=== PATIENT | female | born 1975 | race Caucasian/White ===

== ENCOUNTER → 2020-07-04 | Outpatient (CLI) | payer MEDICARE, MEDICAID ==
[2020-07-04 16:22] LABS: ALT/SGPT 16 U/L (12-78); BILIRUBIN,TOTAL 0.3 MG/DL (0.2-1.0); BLOOD UREA NITROGEN 7 MG/DL (7-18); CALCIUM LEVEL 9.8 MG/DL (8.5-10.1); CARBON DIOXIDE LEVEL 28 MEQ/L (21-32); CHLORIDE LEVEL 109 MEQ/L (98-107); GLOMERULAR FILTRATION RATE > 60.0 (>58); GLUCOSE, FASTING 92 MG/DL (70-100); PHENOBARBITAL LEVEL 22.1 UG/ML (15.0-40.0); POTASSIUM SERUM 5.4 MEQ/L (3.5-5.1); SODIUM LEVEL 143 MEQ/L (136-145)
--- NOTE | 2020-07-19 17:09 | REP ---
WHOLE BREAST RIGHT UNILATERAL ULTRASOUND HISTORY: Patient with cerebral palsy unable to do mammography. Breast pain x6 months. Right breast bloody nipple discharge. FINDINGS: Patient was scanned in the wheelchair and exam quality is inhibited by patient motion and position. Scanning of the entire right breast is performed. Multiple anechoic structures are seen posterior to the nipple with a few dilated ducts. At 12 o'clock, there is a 9 x 8 x 7 mm cyst. At the 4 o'clock position, 1.4 cm from the nipple, there is a 6 mm cyst. In the 6 o'clock position just posterior to the nipple, there is an 11 mm cyst. A 7 mm cyst is seen at the 10 o'clock position 2.6 cm from the nipple. Heterogeneous fibroglandular background echotexture is seen. IMPRESSION: BI-RADS Category 2 benign findings. Exam quality somewhat inhibited by patient mobility issues. Clinical follow-up is advised. [facility]
== END ==
LOC: M RAD 13:22
PROVIDERS: ATTEND Internal Medicine
DX: N64.4 Mastodynia (principal); G40.309 Generalized idiopathic epilepsy and epileptic syndromes, not intractable, without status epilepticus; I10 Essential (primary) hypertension; N60.11 Diffuse cystic mastopathy of right breast

== ENCOUNTER → 2022-02-26 | Outpatient (CLI) | payer MEDICARE, MEDICAID ==
[2022-02-26 16:09] LABS: ALBUMIN 3.8 GM/DL (3.2-5.2); ALT/SGPT 14 U/L (12-78); BILIRUBIN,TOTAL 0.2 MG/DL (0.2-1.0); BLOOD UREA NITROGEN 7 MG/DL (7-18); CALCIUM LEVEL 9.8 MG/DL (8.5-10.1); CARBON DIOXIDE LEVEL 28 MEQ/L (21-32); CHLORIDE LEVEL 111 MEQ/L (98-107); CREATININE FOR GFR 0.74 MG/DL (0.55-1.30); GLOMERULAR FILTRATION RATE > 60.0 (>58); GLUCOSE, FASTING 99 MG/DL (70-100); PHENOBARBITAL LEVEL 24.9 UG/ML (15.0-40.0); POTASSIUM SERUM 5.5 MEQ/L (3.5-5.1); SODIUM LEVEL 143 MEQ/L (136-145); TOTAL PROTEIN 6.7 GM/DL (6.4-8.2)
== END ==
LOC: M PLALAB 13:42
PROVIDERS: ATTEND Internal Medicine
DX: G40.309 Generalized idiopathic epilepsy and epileptic syndromes, not intractable, without status epilepticus (principal); K21.9 Gastro-esophageal reflux disease without esophagitis

== ENCOUNTER → 2022-02-26 | Outpatient (CLI) | payer MEDICARE, MEDICAID | LOC: M WHC 12:18 | PROVIDERS: ATTEND Internal Medicine | DX: Z12.31 Encounter for screening mammogram for malignant neoplasm of breast (principal); N60.11 Diffuse cystic mastopathy of right breast; N60.12 Diffuse cystic mastopathy of left breast ==

== ENCOUNTER 2022-07-09 21:50 | Inpatient (IN) | payer MEDICARE, MEDICAID ==
[~2022-07-09] VITALS: Ht 170.2 cm; Wt 40.6 kg
[2022-07-09 22:55] LABS: BASO % 0.4 % (0.0-1.0); EOS # 0.2 10^3/uL (0.0-0.5); EOS % 2.7 % (0.0-3.0); HEMATOCRIT 42.6 % (36.0-47.0); HEMOGLOBIN 14.6 g/dl (12.0-15.5); LYMPH # 2.6 10^3/uL (1.5-5.0); LYMPH % 33.2 % (24.0-44.0); MEAN CORPUSCULAR HEMOGLOBIN 29.8 pg (27.0-33.0); MEAN CORPUSCULAR HGB CONC 34.3 g/dl (32.0-36.5); MEAN CORPUSCULAR VOLUME 86.9 fl (80.0-96.0); MONO # 0.7 10^3/uL (0.0-0.8); MONO % 8.4 % (2.0-8.0); NEUTROPHILS # 4.3 10^3/uL (1.5-8.5); PLATELET COUNT, AUTOMATED 295 10^3/uL (150-450); WHITE BLOOD COUNT 7.8 10^3/uL (4.0-10.0)
[2022-07-09 23:27] LABS: RSV AMPLIFICATION NEGATIVE (NEGATIVE)
[2022-07-09 23:29] LABS: ALBUMIN 3.9 GM/DL (3.2-5.2); ALT/SGPT 14 U/L (12-78); BILIRUBIN,DIRECT < 0.1 MG/DL (0.0-0.2); BILIRUBIN,TOTAL 0.2 MG/DL (0.2-1.0); BLOOD UREA NITROGEN 10 MG/DL (7-18); CALCIUM LEVEL 9.2 MG/DL (8.5-10.1); CARBON DIOXIDE LEVEL 26 MEQ/L (21-32); CHLORIDE LEVEL 111 MEQ/L (98-107); CREATININE FOR GFR 0.62 MG/DL (0.55-1.30); GLOMERULAR FILTRATION RATE > 60.0 (>58); GLUCOSE, FASTING 93 MG/DL (70-100); SODIUM LEVEL 140 MEQ/L (136-145); TOTAL PROTEIN 6.9 GM/DL (6.4-8.2)
[2022-07-10] MEDS ORDERED: VENTAER INH (00:15)
[2022-07-10] MEDS ORDERED: ZINC85CR TOP (00:15)
[2022-07-10] MEDS ORDERED: PHEN32.44 PO (00:15)
[2022-07-10] MEDS ORDERED: FAMO40TA3 PO (00:15)
[2022-07-10] MEDS ORDERED: HOME MED LIST COMPLETE! XX SCH (00:15)
[2022-07-10] MEDS ORDERED: BALMEX CREAM 60GM TOP PRN (00:30)
[2022-07-10] MEDS ORDERED: ALBUTEROL 90 MCG/ACT 8GM HFA INHALER INH PRN (00:30)
[2022-07-10 00:45] VITALS: BP 142/98
[2022-07-10] MEDS: cefTRIAXone SOD 1 GM in D5W MINI-BAG PLUS 50 ML IV SCH (01:15)
[2022-07-10] MEDS: NS 1,000 ML IV SCH ×2 (01:15→10:58)
[2022-07-10 06:00] VITALS: BP 148/88
[2022-07-10] MEDS: FAMOTIDINE 20 MG TAB PO SCH ×2 (10:06→23:56)
[2022-07-10] MEDS: PHENobarbitaL 30 MG TAB PO SCH ×3 (10:06→23:56)
[2022-07-10] MEDS: ENOXAPARIN 40MG/0.4ML SYRINGE (J1650 PER 10MG) SC SCH (10:07)
[2022-07-10 14:00] VITALS: BP 120/95
[2022-07-10 20:00] VITALS: BP 119/91
[2022-07-10] MEDS ORDERED: FLEET ENEMA PR ONE (20:00)
[2022-07-11] MEDS: cefTRIAXone SOD 1 GM in D5W MINI-BAG PLUS 50 ML IV SCH (01:07)
[2022-07-11 06:00] VITALS: BP 141/71
[2022-07-11 07:14] LABS: HEMATOCRIT 42.9 % (36.0-47.0); HEMOGLOBIN 14.3 g/dl (12.0-15.5); MEAN CORPUSCULAR HEMOGLOBIN 29.3 pg (27.0-33.0); MEAN CORPUSCULAR HGB CONC 33.3 g/dl (32.0-36.5); MEAN CORPUSCULAR VOLUME 87.9 fl (80.0-96.0); PLATELET COUNT, AUTOMATED 240 10^3/uL (150-450); RED BLOOD COUNT 4.88 10^6/uL (4.00-5.40); WHITE BLOOD COUNT 6.4 10^3/uL (4.0-10.0)
[2022-07-11 07:57] LABS: BLOOD UREA NITROGEN 6 MG/DL (7-18); CALCIUM LEVEL 9.1 MG/DL (8.5-10.1); CARBON DIOXIDE LEVEL 21 MEQ/L (21-32); CHLORIDE LEVEL 115 MEQ/L (98-107); CREATININE FOR GFR 0.58 MG/DL (0.55-1.30); GLOMERULAR FILTRATION RATE > 60.0 (>58); GLUCOSE, FASTING 80 MG/DL (70-100); MAGNESIUM LEVEL 2.1 MG/DL (1.8-2.4); PHOSPHORUS LEVEL 3.7 MG/DL (2.5-4.9); POTASSIUM SERUM 4.9 MEQ/L (3.5-5.1); SODIUM LEVEL 141 MEQ/L (136-145)
[2022-07-11] MEDS: PHENobarbitaL 30 MG TAB PO SCH ×3 (09:20→22:13)
[2022-07-11] MEDS: FAMOTIDINE 20 MG TAB PO SCH ×2 (09:21→22:13)
[2022-07-11] MEDS: ENOXAPARIN 40MG/0.4ML SYRINGE (J1650 PER 10MG) SC SCH (09:21)
[2022-07-11 14:00] VITALS: BP 135/73
[2022-07-11 21:25] VITALS: BP 109/73
[2022-07-12] MEDS: cefTRIAXone SOD 1 GM in D5W MINI-BAG PLUS 50 ML IV SCH (00:23)
[2022-07-12 05:43] VITALS: BP 133/83
[2022-07-12] MEDS: ENOXAPARIN 40MG/0.4ML SYRINGE (J1650 PER 10MG) SC SCH (09:59)
[2022-07-12] MEDS: FAMOTIDINE 20 MG TAB PO SCH ×2 (09:59→23:27)
[2022-07-12] MEDS: PHENobarbitaL 30 MG TAB PO SCH ×3 (09:59→23:26)
[2022-07-12 14:00] VITALS: BP 100/68
[2022-07-12 22:00] VITALS: BP 122/79
[2022-07-12] MEDS: CEFDINIR 300 MG CAP (OMNICEF) PO SCH (23:26)
[2022-07-13] VITALS (8 sets, daily range): BP systolic 78–136; BP diastolic 44–95; O2SAT 96
[2022-07-13] MEDS ORDERED: ACETAMINOPHEN TAB 650MG DOSE (2X325MG) PO ONE (08:05)
[2022-07-13] MEDS: ENOXAPARIN 40MG/0.4ML SYRINGE (J1650 PER 10MG) SC SCH (09:01)
[2022-07-13] MEDS: PHENobarbitaL 30 MG TAB PO SCH ×3 (09:01→21:25)
[2022-07-13] MEDS: FAMOTIDINE 20 MG TAB PO SCH ×2 (09:02→21:25)
[2022-07-13] MEDS: CEFDINIR 300 MG CAP (OMNICEF) PO SCH (09:02)
[2022-07-13 10:43] LABS: HEMATOCRIT 40.6 % (36.0-47.0); HEMOGLOBIN 13.7 g/dl (12.0-15.5); MEAN CORPUSCULAR HEMOGLOBIN 29.7 pg (27.0-33.0); MEAN CORPUSCULAR HGB CONC 33.7 g/dl (32.0-36.5); MEAN CORPUSCULAR VOLUME 87.9 fl (80.0-96.0); PLATELET COUNT, AUTOMATED 201 10^3/uL (150-450); RED BLOOD COUNT 4.62 10^6/uL (4.00-5.40); WHITE BLOOD COUNT 5.6 10^3/uL (4.0-10.0)
[2022-07-13 11:26] LABS: BLOOD UREA NITROGEN 19 MG/DL (7-18); CALCIUM LEVEL 9.1 MG/DL (8.5-10.1); CARBON DIOXIDE LEVEL 24 MEQ/L (21-32); CHLORIDE LEVEL 115 MEQ/L (98-107); CREATININE FOR GFR 0.96 MG/DL (0.55-1.30); GLOMERULAR FILTRATION RATE > 60.0 (>58); GLUCOSE, FASTING 168 MG/DL (70-100); SODIUM LEVEL 147 MEQ/L (136-145)
[2022-07-13] MEDS ORDERED: NS 500 ML IV ONE (12:25)
[2022-07-13] MEDS ORDERED: D5W 1,000 ML IV SCH (13:30)
[2022-07-13] MEDS ORDERED: NS 1,000 ML IV ONE ×2 (13:35→22:50)
[2022-07-13] MEDS: PIPERACILLIN/TAZOBACTAM SOD 3.375 GM in D5W MINI-BAG PLUS 50 ML IV SCH ×2 (15:46→21:25)
[2022-07-13] MEDS: FLEET ENEMA PR SCH (15:53)
[2022-07-13] MEDS: ACETAMINOPHEN TAB 650MG DOSE (2X325MG) PO PRN (22:13)
[2022-07-13] MEDS ORDERED: VANCOMYCIN HCL 1,000 MG, VIAL MATE ADAPTER 1 EACH in NS 250 ML IV ONE (23:00)
[2022-07-13 23:39] LABS: HEMATOCRIT 36.7 % (36.0-47.0); HEMOGLOBIN 12.5 g/dl (12.0-15.5); LYMPH # 0.9 10^3/uL (1.5-5.0); LYMPH % 23.5 % (24.0-44.0); MEAN CORPUSCULAR HEMOGLOBIN 30.1 pg (27.0-33.0); MEAN CORPUSCULAR HGB CONC 34.1 g/dl (32.0-36.5); MEAN CORPUSCULAR VOLUME 88.4 fl (80.0-96.0); MONO # 0.6 10^3/uL (0.0-0.8); MONO % 14.3 % (2.0-8.0); NEUTROPHILS # 2.4 10^3/uL (1.5-8.5); NEUTROPHILS % 61.9 % (36.0-66.0); PLATELET COUNT, AUTOMATED 163 10^3/uL (150-450); RED BLOOD COUNT 4.15 10^6/uL (4.00-5.40); WHITE BLOOD COUNT 3.9 10^3/uL (4.0-10.0)
[2022-07-14] VITALS (22 sets, daily range): BP systolic 100–131; BP diastolic 48–90; O2SAT 83–100
[2022-07-14] MEDS ORDERED: UNRESOLVED CLARIFICATION ENTRY XX SCH (00:01)
[2022-07-14 00:15] LABS: RSV AMPLIFICATION NEGATIVE (NEGATIVE)
[2022-07-14 01:27] LABS: ALBUMIN 3.3 GM/DL (3.2-5.2); BILIRUBIN,DIRECT 0.1 MG/DL (0.0-0.2); BILIRUBIN,TOTAL 0.4 MG/DL (0.2-1.0); TOTAL PROTEIN 5.9 GM/DL (6.4-8.2)
[2022-07-14] MEDS ORDERED: REMDESIVIR 200 MG in NS 250 ML IV ONE (02:00)
[2022-07-14] MEDS: NS 1,000 ML IV SCH ×2 (02:02→12:08)
[2022-07-14] MEDS: PIPERACILLIN/TAZOBACTAM SOD 3.375 GM in D5W MINI-BAG PLUS 50 ML IV SCH ×4 (03:34→21:46)
[2022-07-14] MEDS ORDERED: SODIUM CHLORIDE 0.9% INJ 10 ML SYR IV ONE (04:00)
[2022-07-14 06:07] LABS: INR 1.09; PROTHROMBIN TIME 14.5 SECONDS (12.7-14.5)
[2022-07-14 06:08] LABS: PARTIAL THROMBOPLASTIN TIME 40.9 SECONDS (25.9-37.0)
[2022-07-14 06:11] LABS: D-DIMER QUANT 1013.66 ng/ml (<500)
[2022-07-14 08:31] LABS: HEMATOCRIT 36.1 % (36.0-47.0); HEMOGLOBIN 12.1 g/dl (12.0-15.5); MEAN CORPUSCULAR HEMOGLOBIN 29.9 pg (27.0-33.0); MEAN CORPUSCULAR HGB CONC 33.5 g/dl (32.0-36.5); MEAN CORPUSCULAR VOLUME 89.1 fl (80.0-96.0); PLATELET COUNT, AUTOMATED 142 10^3/uL (150-450); RED BLOOD COUNT 4.05 10^6/uL (4.00-5.40); WHITE BLOOD COUNT 3.7 10^3/uL (4.0-10.0)
[2022-07-14 09:02] LABS: BLOOD UREA NITROGEN 10 MG/DL (7-18); CALCIUM LEVEL 7.3 MG/DL (8.5-10.1); CARBON DIOXIDE LEVEL 21 MEQ/L (21-32); CHLORIDE LEVEL 117 MEQ/L (98-107); GLOMERULAR FILTRATION RATE > 60.0 (>58); GLUCOSE, FASTING 83 MG/DL (70-100); POTASSIUM SERUM 3.8 MEQ/L (3.5-5.1); SODIUM LEVEL 146 MEQ/L (136-145)
[2022-07-14] MEDS: ENOXAPARIN 40MG/0.4ML SYRINGE (J1650 PER 10MG) SC SCH (09:13)
[2022-07-14] MEDS: FAMOTIDINE 20 MG TAB PO SCH ×2 (09:14→21:46)
[2022-07-14] MEDS: PHENobarbitaL 30 MG TAB PO SCH ×3 (09:14→21:46)
[2022-07-14] MEDS: VANCOMYCIN HCL 500 MG in D5W MINI-BAG PLUS 100 ML IV SCH ×2 (10:48→23:08)
[2022-07-14] MEDS: ACETAMINOPHEN TAB 650MG DOSE (2X325MG) PO PRN ×2 (12:08→14:48)
[2022-07-14] MEDS ORDERED: IBUPROFEN 600MG TAB PO ONE (14:55)
[2022-07-14] MEDS: D5W/0.45% SODIUM CHLORIDE 1,000 ML IV SCH (15:25)
[2022-07-14] MEDS: ALBUTEROL 90 MCG/ACT 8GM HFA INHALER INH SCH (20:00)
[2022-07-15] VITALS (7 sets, daily range): BP systolic 106–142; BP diastolic 78–112; O2SAT 94–98
[2022-07-15] MEDS: REMDESIVIR 100 MG in NS 250 ML IV SCH (01:38)
[2022-07-15] MEDS: PIPERACILLIN/TAZOBACTAM SOD 3.375 GM in D5W MINI-BAG PLUS 50 ML IV SCH ×2 (03:15→09:41)
[2022-07-15] MEDS: D5W/0.45% SODIUM CHLORIDE 1,000 ML IV SCH (03:15)
[2022-07-15] MEDS: SODIUM CHLORIDE 0.9% INJ 10 ML SYR IV SCH (03:16)
[2022-07-15] MEDS ORDERED: VANCOMYCIN HCL 500 MG in D5W MINI-BAG PLUS 100 ML IV SCH (04:00)
[2022-07-15] MEDS: ACETAMINOPHEN TAB 650MG DOSE (2X325MG) PO PRN (05:27)
[2022-07-15 05:39] LABS: HEMATOCRIT 35.3 % (36.0-47.0); HEMOGLOBIN 12.2 g/dl (12.0-15.5); MEAN CORPUSCULAR HEMOGLOBIN 29.8 pg (27.0-33.0); MEAN CORPUSCULAR HGB CONC 34.6 g/dl (32.0-36.5); MEAN CORPUSCULAR VOLUME 86.1 fl (80.0-96.0); PLATELET COUNT, AUTOMATED 145 10^3/uL (150-450); WHITE BLOOD COUNT 3.1 10^3/uL (4.0-10.0)
[2022-07-15 06:25] LABS: BLOOD UREA NITROGEN 6 MG/DL (7-18); CALCIUM LEVEL 7.5 MG/DL (8.5-10.1); CARBON DIOXIDE LEVEL 24 MEQ/L (21-32); CHLORIDE LEVEL 108 MEQ/L (98-107); CREATININE FOR GFR 0.61 MG/DL (0.55-1.30); GLOMERULAR FILTRATION RATE > 60.0 (>58); GLUCOSE, FASTING 98 MG/DL (70-100); PHOSPHORUS LEVEL 2.3 MG/DL (2.5-4.9); POTASSIUM SERUM 3.8 MEQ/L (3.5-5.1); SODIUM LEVEL 137 MEQ/L (136-145)
[2022-07-15 06:26] LABS: ALBUMIN 2.8 GM/DL (3.2-5.2); ALT/SGPT 48 U/L (12-78); BILIRUBIN,DIRECT 0.2 MG/DL (0.0-0.2); BILIRUBIN,TOTAL 0.3 MG/DL (0.2-1.0); MAGNESIUM LEVEL 1.8 MG/DL (1.8-2.4); TOTAL PROTEIN 5.2 GM/DL (6.4-8.2)
[2022-07-15] MEDS: ALBUTEROL 90 MCG/ACT 8GM HFA INHALER INH SCH ×3 (07:16→20:33)
[2022-07-15 08:28] LABS: PROTHROMBIN TIME 13.6 SECONDS (12.7-14.5)
[2022-07-15 08:29] LABS: PARTIAL THROMBOPLASTIN TIME 40.5 SECONDS (25.9-37.0)
[2022-07-15 08:32] LABS: D-DIMER QUANT 766.93 ng/ml (<500)
[2022-07-15] MEDS: PHENobarbitaL 30 MG TAB PO SCH ×3 (09:41→21:21)
[2022-07-15] MEDS: FAMOTIDINE 20 MG TAB PO SCH ×2 (09:41→21:21)
[2022-07-15] MEDS: ENOXAPARIN 40MG/0.4ML SYRINGE (J1650 PER 10MG) SC SCH (09:42)
[2022-07-15] MEDS ORDERED: BISACODYL 10 MG SUPP PR ONE (15:40)
[2022-07-15] MEDS: cefTRIAXone SOD 1 GM in D5W MINI-BAG PLUS 50 ML IV SCH (15:47)
[2022-07-16] MEDS: REMDESIVIR 100 MG in NS 250 ML IV SCH (02:02)
[2022-07-16] MEDS: SODIUM CHLORIDE 0.9% INJ 10 ML SYR IV SCH (04:11)
[2022-07-16 06:00] VITALS: BP 108/80
[2022-07-16] MEDS: ALBUTEROL 90 MCG/ACT 8GM HFA INHALER INH SCH ×3 (07:08→20:23)
[2022-07-16 07:21] LABS: BASO % 0.2 % (0.0-1.0); HEMATOCRIT 35.2 % (36.0-47.0); HEMOGLOBIN 12.4 g/dl (12.0-15.5); LYMPH # 1.1 10^3/uL (1.5-5.0); LYMPH % 17.4 % (24.0-44.0); MEAN CORPUSCULAR HEMOGLOBIN 29.7 pg (27.0-33.0); MEAN CORPUSCULAR HGB CONC 35.2 g/dl (32.0-36.5); MEAN CORPUSCULAR VOLUME 84.4 fl (80.0-96.0); MONO # 0.6 10^3/uL (0.0-0.8); MONO % 9.4 % (2.0-8.0); NEUTROPHILS # 4.7 10^3/uL (1.5-8.5); NEUTROPHILS % 72.7 % (36.0-66.0); PLATELET COUNT, AUTOMATED 152 10^3/uL (150-450); RED BLOOD COUNT 4.17 10^6/uL (4.00-5.40); WHITE BLOOD COUNT 6.5 10^3/uL (4.0-10.0)
[2022-07-16 07:32] LABS: INR 1.02; PROTHROMBIN TIME 13.8 SECONDS (12.7-14.5)
[2022-07-16 07:33] LABS: PARTIAL THROMBOPLASTIN TIME 37.9 SECONDS (25.9-37.0)
[2022-07-16 08:00] LABS: ALBUMIN 3.2 GM/DL (3.2-5.2); ALT/SGPT 65 U/L (12-78); BILIRUBIN,DIRECT 0.2 MG/DL (0.0-0.2); BILIRUBIN,TOTAL 0.4 MG/DL (0.2-1.0); BLOOD UREA NITROGEN 9 MG/DL (7-18); CARBON DIOXIDE LEVEL 26 MEQ/L (21-32); CHLORIDE LEVEL 108 MEQ/L (98-107); CREATININE FOR GFR 0.55 MG/DL (0.55-1.30); FERRITIN 610 NG/ML (8-252); GLOMERULAR FILTRATION RATE > 60.0 (>58); GLUCOSE, FASTING 94 MG/DL (70-100); LDH LACTATE DEHYDROGENASE 732 U/L (84-246); MAGNESIUM LEVEL 1.8 MG/DL (1.8-2.4); NT-PRO BNP 224 PG/ML (<125); PHOSPHORUS LEVEL 1.9 MG/DL (2.5-4.9); POTASSIUM SERUM 3.5 MEQ/L (3.5-5.1); SODIUM LEVEL 141 MEQ/L (136-145); TOTAL PROTEIN 5.5 GM/DL (6.4-8.2)
[2022-07-16] MEDS ORDERED: NS 500 ML IV ONE (09:40)
[2022-07-16] MEDS: ENOXAPARIN 40MG/0.4ML SYRINGE (J1650 PER 10MG) SC SCH (09:51)
[2022-07-16] MEDS: FAMOTIDINE 20 MG TAB PO SCH ×2 (09:52→22:12)
[2022-07-16] MEDS: PHENobarbitaL 30 MG TAB PO SCH ×3 (09:52→22:11)
[2022-07-16] MEDS: D5W/0.9% SODIUM CHLORIDE 1,000 ML IV SCH ×2 (11:19→22:12)
[2022-07-16] MEDS ORDERED: POTASSIUM PHOSPHATE INJ 20 MMOL in D5W 250 ML IV ONE (13:00)
[2022-07-16 15:31] VITALS: BP 130/60
[2022-07-16] MEDS: cefTRIAXone SOD 1 GM in D5W MINI-BAG PLUS 50 ML IV SCH (16:46)
[2022-07-16 20:00] VITALS: BP 130/101
[2022-07-17] MEDS: REMDESIVIR 100 MG in NS 250 ML IV SCH (03:55)
[2022-07-17] MEDS: SODIUM CHLORIDE 0.9% INJ 10 ML SYR IV SCH (03:56)
[2022-07-17 06:00] VITALS: BP 121/69
[2022-07-17 06:40] LABS: HEMATOCRIT 32.4 % (36.0-47.0); HEMOGLOBIN 11.3 g/dl (12.0-15.5); LYMPH # 1.3 10^3/uL (1.5-5.0); LYMPH % 19.9 % (24.0-44.0); MEAN CORPUSCULAR HEMOGLOBIN 29.4 pg (27.0-33.0); MEAN CORPUSCULAR HGB CONC 34.9 g/dl (32.0-36.5); MEAN CORPUSCULAR VOLUME 84.4 fl (80.0-96.0); MONO # 0.7 10^3/uL (0.0-0.8); MONO % 10.5 % (2.0-8.0); NEUTROPHILS # 4.6 10^3/uL (1.5-8.5); NEUTROPHILS % 69.2 % (36.0-66.0); PLATELET COUNT, AUTOMATED 128 10^3/uL (150-450); RED BLOOD COUNT 3.84 10^6/uL (4.00-5.40); WHITE BLOOD COUNT 6.7 10^3/uL (4.0-10.0)
[2022-07-17 07:08] LABS: BLOOD UREA NITROGEN 7 MG/DL (7-18); CALCIUM LEVEL 7.6 MG/DL (8.5-10.1); CARBON DIOXIDE LEVEL 24 MEQ/L (21-32); CHLORIDE LEVEL 109 MEQ/L (98-107); CREATININE FOR GFR 0.44 MG/DL (0.55-1.30); GLOMERULAR FILTRATION RATE > 60.0 (>58); GLUCOSE, FASTING 98 MG/DL (70-100); MAGNESIUM LEVEL 1.9 MG/DL (1.8-2.4); PHOSPHORUS LEVEL 1.6 MG/DL (2.5-4.9); POTASSIUM SERUM 3.7 MEQ/L (3.5-5.1); SODIUM LEVEL 140 MEQ/L (136-145)
[2022-07-17] MEDS: ALBUTEROL 90 MCG/ACT 8GM HFA INHALER INH SCH ×3 (07:41→20:00)
[2022-07-17] MEDS: FAMOTIDINE 20 MG TAB PO SCH ×2 (09:30→21:51)
[2022-07-17] MEDS: PHENobarbitaL 30 MG TAB PO SCH ×3 (09:31→21:50)
[2022-07-17] MEDS: MAGNESIUM OXIDE 400MG TAB (MAG-OX) PO SCH ×2 (09:31→21:51)
[2022-07-17] MEDS: ENOXAPARIN 40MG/0.4ML SYRINGE (J1650 PER 10MG) SC SCH (09:31)
[2022-07-17] MEDS ORDERED: POTASSIUM PHOSPHATE INJ 30 MMOL in D5W 500 ML IV ONE (11:00)
[2022-07-17 14:00] VITALS: BP 107/65
[2022-07-17] MEDS: FLEET ENEMA PR SCH (16:23)
[2022-07-17] MEDS: cefTRIAXone SOD 1 GM in D5W MINI-BAG PLUS 50 ML IV SCH (16:24)
[2022-07-17] MEDS: SODIUM CHLORIDE IV SCH (18:35)
[2022-07-17 20:00] VITALS: BP 110/76
[2022-07-18] MEDS: SODIUM CHLORIDE IV SCH ×2 (00:38→09:42)
[2022-07-18] MEDS: REMDESIVIR 100 MG in NS 250 ML IV SCH (03:29)
[2022-07-18] MEDS: SODIUM CHLORIDE 0.9% INJ 10 ML SYR IV SCH (03:57)
[2022-07-18 06:00] VITALS: BP 110/73
[2022-07-18] MEDS: ALBUTEROL 90 MCG/ACT 8GM HFA INHALER INH SCH ×3 (07:13→20:43)
[2022-07-18 08:09] LABS: INR 1.1; PROTHROMBIN TIME 14.6 SECONDS (12.7-14.5)
[2022-07-18 08:10] LABS: PARTIAL THROMBOPLASTIN TIME 36.6 SECONDS (25.9-37.0)
[2022-07-18 08:17] LABS: ALBUMIN 2.8 GM/DL (3.2-5.2); ALT/SGPT 107 U/L (12-78); BILIRUBIN,DIRECT 0.2 MG/DL (0.0-0.2); BILIRUBIN,TOTAL 0.4 MG/DL (0.2-1.0); FERRITIN 533 NG/ML (8-252); LDH LACTATE DEHYDROGENASE 999 U/L (84-246); MAGNESIUM LEVEL 2.3 MG/DL (1.8-2.4); NT-PRO BNP 1360 PG/ML (<125); TOTAL PROTEIN 5.3 GM/DL (6.4-8.2)
[2022-07-18 09:08] LABS: BLOOD UREA NITROGEN 6 MG/DL (7-18); CALCIUM LEVEL 7.5 MG/DL (8.5-10.1); CARBON DIOXIDE LEVEL 22 MEQ/L (21-32); CHLORIDE LEVEL 110 MEQ/L (98-107); CREATININE FOR GFR 0.42 MG/DL (0.55-1.30); GLOMERULAR FILTRATION RATE > 60.0 (>58); GLUCOSE, FASTING 91 MG/DL (70-100); POTASSIUM SERUM 4.3 MEQ/L (3.5-5.1); SODIUM LEVEL 141 MEQ/L (136-145)
[2022-07-18] MEDS: FAMOTIDINE 20 MG TAB PO SCH ×2 (09:38→21:21)
[2022-07-18] MEDS: PHENobarbitaL 30 MG TAB PO SCH ×3 (09:38→21:21)
[2022-07-18] MEDS: MAGNESIUM OXIDE 400MG TAB (MAG-OX) PO SCH ×2 (09:38→21:21)
[2022-07-18] MEDS: ENOXAPARIN 40MG/0.4ML SYRINGE (J1650 PER 10MG) SC SCH (09:39)
[2022-07-18 14:00] VITALS: BP 92/62
[2022-07-18] MEDS: NS 1,000 ML IV SCH (14:17)
[2022-07-18] MEDS: cefTRIAXone SOD 1 GM in D5W MINI-BAG PLUS 50 ML IV SCH (15:14)
[2022-07-18 15:19] VITALS: BP 110/60
[2022-07-18 21:31] VITALS: BP 122/89
[2022-07-19] MEDS: NS 1,000 ML IV SCH (03:00)
[2022-07-19 05:55] VITALS: BP 91/63
[2022-07-19 06:39] VITALS: BP 108/60
[2022-07-19 07:23] LABS: BLOOD UREA NITROGEN 4 MG/DL (7-18); CALCIUM LEVEL 7.7 MG/DL (8.5-10.1); CARBON DIOXIDE LEVEL 20 MEQ/L (21-32); CHLORIDE LEVEL 110 MEQ/L (98-107); CREATININE FOR GFR 0.39 MG/DL (0.55-1.30); GLOMERULAR FILTRATION RATE > 60.0 (>58); GLUCOSE, FASTING 83 MG/DL (70-100); MAGNESIUM LEVEL 2.6 MG/DL (1.8-2.4); POTASSIUM SERUM 4.5 MEQ/L (3.5-5.1); SODIUM LEVEL 136 MEQ/L (136-145)
[2022-07-19] MEDS: ALBUTEROL 90 MCG/ACT 8GM HFA INHALER INH SCH ×3 (08:34→20:00)
[2022-07-19] MEDS: MAGNESIUM OXIDE 400MG TAB (MAG-OX) PO SCH (09:00)
[2022-07-19] MEDS: FAMOTIDINE 20 MG TAB PO SCH ×2 (09:18→21:45)
[2022-07-19] MEDS: PHENobarbitaL 30 MG TAB PO SCH ×3 (09:18→21:46)
[2022-07-19] MEDS: ENOXAPARIN 40MG/0.4ML SYRINGE (J1650 PER 10MG) SC SCH (09:19)
[2022-07-19 10:06] LABS: EOS # 0.1 10^3/uL (0.0-0.5); EOS % 1.2 % (0.0-3.0); HEMATOCRIT 34.5 % (36.0-47.0); HEMOGLOBIN 11.8 g/dl (12.0-15.5); LYMPH # 1.5 10^3/uL (1.5-5.0); LYMPH % 22.3 % (24.0-44.0); MEAN CORPUSCULAR HEMOGLOBIN 29.9 pg (27.0-33.0); MEAN CORPUSCULAR HGB CONC 34.2 g/dl (32.0-36.5); MEAN CORPUSCULAR VOLUME 87.3 fl (80.0-96.0); MONO # 0.6 10^3/uL (0.0-0.8); MONO % 9.3 % (2.0-8.0); NEUTROPHILS # 4.5 10^3/uL (1.5-8.5); NEUTROPHILS % 66.9 % (36.0-66.0); PLATELET COUNT, AUTOMATED 170 10^3/uL (150-450); RED BLOOD COUNT 3.95 10^6/uL (4.00-5.40); WHITE BLOOD COUNT 6.7 10^3/uL (4.0-10.0)
[2022-07-19 10:52] LABS: ALBUMIN 2.8 GM/DL (3.2-5.2); BILIRUBIN,DIRECT 0.2 MG/DL (0.0-0.2); BILIRUBIN,TOTAL 0.6 MG/DL (0.2-1.0); TOTAL PROTEIN 5.3 GM/DL (6.4-8.2)
[2022-07-20 06:00] VITALS: BP 90/75
[2022-07-20] MEDS: ALBUTEROL 90 MCG/ACT 8GM HFA INHALER INH SCH ×3 (07:43→20:50)
[2022-07-20 07:54] LABS: HEMATOCRIT 35.8 % (36.0-47.0); HEMOGLOBIN 12.3 g/dl (12.0-15.5); MEAN CORPUSCULAR HEMOGLOBIN 29.4 pg (27.0-33.0); MEAN CORPUSCULAR HGB CONC 34.4 g/dl (32.0-36.5); MEAN CORPUSCULAR VOLUME 85.4 fl (80.0-96.0); PLATELET COUNT, AUTOMATED 219 10^3/uL (150-450); RED BLOOD COUNT 4.19 10^6/uL (4.00-5.40); WHITE BLOOD COUNT 5.9 10^3/uL (4.0-10.0)
[2022-07-20 08:05] LABS: INR 1.1; PROTHROMBIN TIME 14.6 SECONDS (12.7-14.5)
[2022-07-20 08:06] LABS: PARTIAL THROMBOPLASTIN TIME 32.7 SECONDS (25.9-37.0)
[2022-07-20 08:46] LABS: ALBUMIN 2.9 GM/DL (3.2-5.2); ALT/SGPT 78 U/L (12-78); BILIRUBIN,DIRECT < 0.1 MG/DL (0.0-0.2); BILIRUBIN,TOTAL 0.6 MG/DL (0.2-1.0); BLOOD UREA NITROGEN 3 MG/DL (7-18); CARBON DIOXIDE LEVEL 25 MEQ/L (21-32); CHLORIDE LEVEL 108 MEQ/L (98-107); CREATININE FOR GFR 0.38 MG/DL (0.55-1.30); FERRITIN 290 NG/ML (8-252); GLOMERULAR FILTRATION RATE > 60.0 (>58); GLUCOSE, FASTING 89 MG/DL (70-100); LDH LACTATE DEHYDROGENASE 839 U/L (84-246); NT-PRO BNP 386 PG/ML (<125); POTASSIUM SERUM 5.4 MEQ/L (3.5-5.1); SODIUM LEVEL 137 MEQ/L (136-145); TOTAL PROTEIN 5.7 GM/DL (6.4-8.2)
[2022-07-20] MEDS: ENOXAPARIN 40MG/0.4ML SYRINGE (J1650 PER 10MG) SC SCH (09:20)
[2022-07-20] MEDS: PHENobarbitaL 30 MG TAB PO SCH ×3 (09:20→20:27)
[2022-07-20] MEDS: FAMOTIDINE 20 MG TAB PO SCH ×2 (09:20→20:27)
[2022-07-20 14:00] VITALS: BP 118/79
[2022-07-20] MEDS: FLEET ENEMA PR SCH (17:39)
[2022-07-20 20:00] VITALS: BP 117/75
[2022-07-20] MEDS: ACETAMINOPHEN TAB 650MG DOSE (2X325MG) PO PRN (20:43)
[2022-07-21 06:00] VITALS: BP 112/59
[2022-07-21 07:02] LABS: HEMATOCRIT 36.6 % (36.0-47.0); HEMOGLOBIN 12.5 g/dl (12.0-15.5); MEAN CORPUSCULAR HEMOGLOBIN 29.3 pg (27.0-33.0); MEAN CORPUSCULAR HGB CONC 34.2 g/dl (32.0-36.5); MEAN CORPUSCULAR VOLUME 85.7 fl (80.0-96.0); PLATELET COUNT, AUTOMATED 285 10^3/uL (150-450); RED BLOOD COUNT 4.27 10^6/uL (4.00-5.40)
[2022-07-21 07:25] LABS: BLOOD UREA NITROGEN 3 MG/DL (7-18); CALCIUM LEVEL 8.3 MG/DL (8.5-10.1); CARBON DIOXIDE LEVEL 26 MEQ/L (21-32); CHLORIDE LEVEL 108 MEQ/L (98-107); CREATININE FOR GFR 0.38 MG/DL (0.55-1.30); GLOMERULAR FILTRATION RATE > 60.0 (>58); GLUCOSE, FASTING 83 MG/DL (70-100); POTASSIUM SERUM 4.3 MEQ/L (3.5-5.1); SODIUM LEVEL 139 MEQ/L (136-145)
[2022-07-21] MEDS: ALBUTEROL 90 MCG/ACT 8GM HFA INHALER INH SCH ×3 (07:45→20:00)
[2022-07-21] MEDS: FAMOTIDINE 20 MG TAB PO SCH ×2 (08:26→21:57)
[2022-07-21] MEDS: PHENobarbitaL 30 MG TAB PO SCH ×3 (08:26→21:57)
[2022-07-21] MEDS: ENOXAPARIN 40MG/0.4ML SYRINGE (J1650 PER 10MG) SC SCH (08:27)
[2022-07-21 14:00] VITALS: BP 136/69
[2022-07-22 06:00] VITALS: BP 125/68
[2022-07-22] MEDS: ALBUTEROL 90 MCG/ACT 8GM HFA INHALER INH SCH ×3 (07:08→20:20)
[2022-07-22] MEDS: PHENobarbitaL 30 MG TAB PO SCH ×3 (09:18→21:56)
[2022-07-22] MEDS: ENOXAPARIN 40MG/0.4ML SYRINGE (J1650 PER 10MG) SC SCH (09:18)
[2022-07-22] MEDS: FAMOTIDINE 20 MG TAB PO SCH ×2 (09:19→21:56)
[2022-07-22 14:00] VITALS: BP 126/89
[2022-07-23 05:47] VITALS: BP 102/69
[2022-07-23] MEDS: ALBUTEROL 90 MCG/ACT 8GM HFA INHALER INH SCH ×3 (08:28→20:53)
[2022-07-23] MEDS: ENOXAPARIN 40MG/0.4ML SYRINGE (J1650 PER 10MG) SC SCH (10:28)
[2022-07-23] MEDS: FAMOTIDINE 20 MG TAB PO SCH ×2 (10:28→21:21)
[2022-07-23] MEDS: PHENobarbitaL 30 MG TAB PO SCH ×3 (10:28→21:21)
[2022-07-24 05:38] VITALS: BP 104/68
[2022-07-24] MEDS: ALBUTEROL 90 MCG/ACT 8GM HFA INHALER INH SCH ×3 (08:49→20:00)
[2022-07-24] MEDS: PHENobarbitaL 30 MG TAB PO SCH ×3 (09:55→20:37)
[2022-07-24] MEDS: FAMOTIDINE 20 MG TAB PO SCH ×2 (09:55→20:35)
[2022-07-24] MEDS: ENOXAPARIN 40MG/0.4ML SYRINGE (J1650 PER 10MG) SC SCH (09:56)
[2022-07-24] MEDS: FLEET ENEMA PR SCH (15:15)
[2022-07-25 06:00] VITALS: BP 106/79
[2022-07-25] MEDS: ALBUTEROL 90 MCG/ACT 8GM HFA INHALER INH SCH ×2 (07:10→20:00)
[2022-07-25] MEDS: FAMOTIDINE 20 MG TAB PO SCH ×2 (09:47→20:27)
[2022-07-25] MEDS: PHENobarbitaL 30 MG TAB PO SCH ×3 (09:47→20:28)
[2022-07-25] MEDS: ENOXAPARIN 40MG/0.4ML SYRINGE (J1650 PER 10MG) SC SCH (09:47)
[2022-07-26 06:00] VITALS: BP 101/62
[2022-07-26] MEDS: ALBUTEROL 90 MCG/ACT 8GM HFA INHALER INH SCH ×3 (07:33→21:00)
[2022-07-26] MEDS: FAMOTIDINE 20 MG TAB PO SCH ×2 (08:13→21:51)
[2022-07-26] MEDS: ENOXAPARIN 40MG/0.4ML SYRINGE (J1650 PER 10MG) SC SCH (08:13)
[2022-07-26] MEDS: PHENobarbitaL 30 MG TAB PO SCH ×3 (08:14→21:51)
[2022-07-27 06:00] VITALS: BP 106/62
[2022-07-27] MEDS: ALBUTEROL 90 MCG/ACT 8GM HFA INHALER INH SCH ×3 (07:34→20:41)
[2022-07-27] MEDS: FAMOTIDINE 20 MG TAB PO SCH ×2 (09:18→21:16)
[2022-07-27] MEDS: PHENobarbitaL 30 MG TAB PO SCH ×3 (09:18→21:16)
[2022-07-27] MEDS: ENOXAPARIN 40MG/0.4ML SYRINGE (J1650 PER 10MG) SC SCH (09:19)
[2022-07-27] MEDS: FLEET ENEMA PR SCH (18:09)
[2022-07-28 05:39] VITALS: BP 112/66
[2022-07-28] MEDS: ALBUTEROL 90 MCG/ACT 8GM HFA INHALER INH SCH ×3 (07:59→19:33)
[2022-07-28] MEDS: ENOXAPARIN 40MG/0.4ML SYRINGE (J1650 PER 10MG) SC SCH (09:29)
[2022-07-28] MEDS: FAMOTIDINE 20 MG TAB PO SCH ×2 (09:29→21:08)
[2022-07-28] MEDS: PHENobarbitaL 30 MG TAB PO SCH ×3 (09:56→21:08)
[2022-07-29 05:15] VITALS: BP 104/61
[2022-07-29] MEDS: ALBUTEROL 90 MCG/ACT 8GM HFA INHALER INH SCH ×3 (08:55→20:00)
[2022-07-29] MEDS: PHENobarbitaL 30 MG TAB PO SCH ×3 (09:27→21:47)
[2022-07-29] MEDS: ENOXAPARIN 40MG/0.4ML SYRINGE (J1650 PER 10MG) SC SCH (09:27)
[2022-07-29] MEDS: FAMOTIDINE 20 MG TAB PO SCH ×2 (09:27→21:47)
[2022-07-30 05:50] VITALS: BP 112/63
[2022-07-30] MEDS: ALBUTEROL 90 MCG/ACT 8GM HFA INHALER INH SCH ×3 (07:17→19:55)
[2022-07-30] MEDS: FAMOTIDINE 20 MG TAB PO SCH ×2 (08:38→21:57)
[2022-07-30] MEDS: ENOXAPARIN 40MG/0.4ML SYRINGE (J1650 PER 10MG) SC SCH (08:39)
[2022-07-30] MEDS: PHENobarbitaL 30 MG TAB PO SCH ×3 (08:44→21:57)
[2022-07-31 05:43] VITALS: BP 110/67
[2022-07-31] MEDS: ALBUTEROL 90 MCG/ACT 8GM HFA INHALER INH SCH ×3 (08:24→19:46)
[2022-07-31] MEDS: ENOXAPARIN 40MG/0.4ML SYRINGE (J1650 PER 10MG) SC SCH (09:07)
[2022-07-31] MEDS: PHENobarbitaL 30 MG TAB PO SCH ×3 (09:07→21:20)
[2022-07-31] MEDS: FAMOTIDINE 20 MG TAB PO SCH ×2 (09:07→21:19)
[2022-07-31] MEDS: FLEET ENEMA PR SCH ×2 (14:00→15:26)
[2022-08-01 05:50] VITALS: BP 117/97
[2022-08-01] MEDS: ALBUTEROL 90 MCG/ACT 8GM HFA INHALER INH SCH ×3 (08:09→19:54)
[2022-08-01] MEDS: FAMOTIDINE 20 MG TAB PO SCH ×2 (10:53→20:17)
[2022-08-01] MEDS: PHENobarbitaL 30 MG TAB PO SCH ×3 (10:54→20:17)
[2022-08-01] MEDS: ENOXAPARIN 40MG/0.4ML SYRINGE (J1650 PER 10MG) SC SCH (10:54)
[2022-08-02 06:00] VITALS: BP 120/77
[2022-08-02] MEDS: ALBUTEROL 90 MCG/ACT 8GM HFA INHALER INH SCH ×3 (07:38→21:22)
[2022-08-02] MEDS: PHENobarbitaL 30 MG TAB PO SCH ×3 (09:22→20:20)
[2022-08-02] MEDS: FAMOTIDINE 20 MG TAB PO SCH ×2 (09:22→20:20)
[2022-08-02] MEDS: ENOXAPARIN 40MG/0.4ML SYRINGE (J1650 PER 10MG) SC SCH (09:22)
[2022-08-03 05:29] VITALS: BP 86/53
[2022-08-03] MEDS ORDERED: NS 500 ML IV ONE ×3 (05:40→06:50)
[2022-08-03 06:33] VITALS: BP 92/46
[2022-08-03] MEDS: ALBUTEROL 90 MCG/ACT 8GM HFA INHALER INH SCH ×4 (07:23→21:11)
[2022-08-03 07:30] VITALS: BP 120/81
[2022-08-03] MEDS: FAMOTIDINE 20 MG TAB PO SCH ×2 (08:48→20:35)
[2022-08-03] MEDS: PHENobarbitaL 30 MG TAB PO SCH ×3 (08:49→20:35)
[2022-08-03] MEDS: ENOXAPARIN 40MG/0.4ML SYRINGE (J1650 PER 10MG) SC SCH (08:49)
[2022-08-03] MEDS: FLEET ENEMA PR SCH (13:44)
[2022-08-04 06:31] VITALS: BP 96/53
[2022-08-04] MEDS: ENOXAPARIN 40MG/0.4ML SYRINGE (J1650 PER 10MG) SC SCH (08:26)
[2022-08-04] MEDS: FAMOTIDINE 20 MG TAB PO SCH ×2 (08:26→20:57)
[2022-08-04] MEDS: PHENobarbitaL 30 MG TAB PO SCH ×3 (08:26→20:57)
[2022-08-04] MEDS: ALBUTEROL 90 MCG/ACT 8GM HFA INHALER INH SCH ×2 (13:28→20:12)
[2022-08-04 20:00] VITALS: BP 106/66
[2022-08-05 04:00] VITALS: BP 105/65
[2022-08-05] MEDS: ALBUTEROL 90 MCG/ACT 8GM HFA INHALER INH SCH ×3 (07:58→19:28)
[2022-08-05] MEDS: ENOXAPARIN 40MG/0.4ML SYRINGE (J1650 PER 10MG) SC SCH (09:07)
[2022-08-05] MEDS: FAMOTIDINE 20 MG TAB PO SCH ×2 (09:07→21:42)
[2022-08-05] MEDS: PHENobarbitaL 30 MG TAB PO SCH ×3 (09:07→21:42)
[2022-08-06 06:00] VITALS: BP 111/74
[2022-08-06] MEDS: ALBUTEROL 90 MCG/ACT 8GM HFA INHALER INH SCH ×3 (08:00→19:12)
[2022-08-06] MEDS: FAMOTIDINE 20 MG TAB PO SCH ×2 (08:27→21:57)
[2022-08-06] MEDS: ENOXAPARIN 40MG/0.4ML SYRINGE (J1650 PER 10MG) SC SCH (08:27)
[2022-08-06] MEDS: PHENobarbitaL 30 MG TAB PO SCH ×3 (08:27→21:57)
[2022-08-07 06:00] VITALS: BP 92/46
[2022-08-07] MEDS: ALBUTEROL 90 MCG/ACT 8GM HFA INHALER INH SCH (08:00)
[2022-08-07] MEDS: FAMOTIDINE 20 MG TAB PO SCH ×2 (08:31→22:46)
[2022-08-07] MEDS: ENOXAPARIN 40MG/0.4ML SYRINGE (J1650 PER 10MG) SC SCH (08:32)
[2022-08-07] MEDS: PHENobarbitaL 30 MG TAB PO SCH ×3 (08:32→22:46)
[2022-08-07 08:47] VITALS: BP 114/74
[2022-08-07] MEDS ORDERED: TUBERCULIN PPD 5 UNITS/0.1 ML ID ONE (11:00)
[2022-08-07] MEDS ORDERED: ALBUTEROL 90 MCG/ACT 8GM HFA INHALER INH PRN (12:05)
[2022-08-07] MEDS: FLEET ENEMA PR SCH (13:14)
[2022-08-07] MEDS ORDERED: NYSTATIN CREAM 15GM TOP PRN (15:00)
[2022-08-07] MEDS: NYSTATIN CREAM 15GM TOP SCH ×2 (15:20→23:06)
[2022-08-07 22:00] VITALS: BP 102/69
[2022-08-08 06:00] VITALS: BP 136/88
[2022-08-08] MEDS: PHENobarbitaL 30 MG TAB PO SCH ×3 (08:38→21:20)
[2022-08-08] MEDS: NYSTATIN CREAM 15GM TOP SCH ×2 (08:38→21:20)
[2022-08-08] MEDS: FAMOTIDINE 20 MG TAB PO SCH ×2 (08:38→21:20)
[2022-08-08] MEDS: ENOXAPARIN 40MG/0.4ML SYRINGE (J1650 PER 10MG) SC SCH (08:38)
[2022-08-09 06:00] VITALS: BP 118/75
[2022-08-09] MEDS: ENOXAPARIN 40MG/0.4ML SYRINGE (J1650 PER 10MG) SC SCH (09:00)
[2022-08-09] MEDS: FAMOTIDINE 20 MG TAB PO SCH ×2 (09:00→20:55)
[2022-08-09] MEDS: PHENobarbitaL 30 MG TAB PO SCH ×3 (09:00→20:55)
[2022-08-09] MEDS: NYSTATIN CREAM 15GM TOP SCH ×2 (09:01→20:56)
[2022-08-09] MEDS ORDERED: PPD DOCUMENTATION ENTRY MISC XX ONE (11:00)
[2022-08-10] MEDS: NYSTATIN CREAM 15GM TOP SCH ×2 (09:00→20:06)
[2022-08-10] MEDS: FAMOTIDINE 20 MG TAB PO SCH ×2 (09:16→20:05)
[2022-08-10] MEDS: ENOXAPARIN 40MG/0.4ML SYRINGE (J1650 PER 10MG) SC SCH (09:16)
[2022-08-10] MEDS: PHENobarbitaL 30 MG TAB PO SCH ×3 (09:16→20:05)
[2022-08-10 10:00] VITALS: BP 109/74
[2022-08-10] MEDS: FLEET ENEMA PR SCH (14:22)
[2022-08-11 06:00] VITALS: BP 110/70
[2022-08-11] MEDS: PHENobarbitaL 30 MG TAB PO SCH ×3 (09:51→20:44)
[2022-08-11] MEDS: FAMOTIDINE 20 MG TAB PO SCH ×2 (09:51→20:43)
[2022-08-11] MEDS: NYSTATIN CREAM 15GM TOP SCH ×2 (09:52→20:44)
[2022-08-11] MEDS: ENOXAPARIN 40MG/0.4ML SYRINGE (J1650 PER 10MG) SC SCH (09:52)
[2022-08-12 05:30] VITALS: BP 102/62
[2022-08-12] MEDS: PHENobarbitaL 30 MG TAB PO SCH ×3 (09:52→20:16)
[2022-08-12] MEDS: NYSTATIN CREAM 15GM TOP SCH ×2 (09:52→20:16)
[2022-08-12] MEDS: FAMOTIDINE 20 MG TAB PO SCH ×2 (09:52→20:16)
[2022-08-12] MEDS: ENOXAPARIN 40MG/0.4ML SYRINGE (J1650 PER 10MG) SC SCH (09:53)
[2022-08-13 06:30] VITALS: BP 105/62
[2022-08-13] MEDS: ENOXAPARIN 40MG/0.4ML SYRINGE (J1650 PER 10MG) SC SCH (09:20)
[2022-08-13] MEDS: FAMOTIDINE 20 MG TAB PO SCH ×2 (09:20→20:10)
[2022-08-13] MEDS: PHENobarbitaL 30 MG TAB PO SCH ×3 (09:20→20:09)
[2022-08-13] MEDS: NYSTATIN CREAM 15GM TOP SCH ×2 (09:21→20:10)
[2022-08-14 06:00] VITALS: BP 105/56
[2022-08-14] MEDS ORDERED: PHEN32.44 PO ×2 (07:54→11:17)
[2022-08-14] MEDS ORDERED: VENTAER INH ×2 (07:54→11:17)
[2022-08-14] MEDS: FAMOTIDINE 20 MG TAB PO SCH (09:16)
[2022-08-14] MEDS: PHENobarbitaL 30 MG TAB PO SCH (09:16)
[2022-08-14] MEDS: ENOXAPARIN 40MG/0.4ML SYRINGE (J1650 PER 10MG) SC SCH (09:16)
[2022-08-14] MEDS: NYSTATIN CREAM 15GM TOP SCH (09:16)
[2022-08-14] MEDS ORDERED: ZINC85CR TOP (11:17)
[2022-08-14] MEDS ORDERED: FAMO40TA3 PO (11:17)
[2022-08-14] MEDS ORDERED: FLEEENE12 PR (11:17)
== END 2022-08-14 11:59 | disposition home or self-care (01) | DRG 689 ==
LOC: M ED 21:50 → M ED INP 23:42 → ENRESERV 07-10 00:05 → M MSPAV 07-10 00:46
PROVIDERS: ADMIT Family Medicine; ATTEND Family Medicine
PROC: XW033E5 Introduction of Remdesivir Anti-infective into Peripheral Vein, Percutaneous Approach, New Technology Group 5 (ICD-10-PCS; principal; 2022-07-13)
DX: N39.0 Urinary tract infection, site not specified (principal); A41.9 Sepsis, unspecified organism; J69.0 Pneumonitis due to inhalation of food and vomit; U07.1 COVID-19; D65 Disseminated intravascular coagulation [defibrination syndrome]; M62.82 Rhabdomyolysis; G80.9 Cerebral palsy, unspecified; B96.20 Unspecified Escherichia coli [E. coli] as the cause of diseases classified elsewhere; Z66 Do not resuscitate; J45.909 Unspecified asthma, uncomplicated; M19.90 Unspecified osteoarthritis, unspecified site; K21.9 Gastro-esophageal reflux disease without esophagitis; F42.9 Obsessive-compulsive disorder, unspecified; Z20.822 Contact with and (suspected) exposure to COVID-19; Z79.899 Other long term (current) drug therapy; Z88.6 Allergy status to analgesic agent; R94.31 Abnormal electrocardiogram [ECG] [EKG]; Z74.1 Need for assistance with personal care